=== PATIENT | female | born 1990 | race African-American/Black ===

== ENCOUNTER → 2018-02-15 | Outpatient (CLI) | payer OTHER | LOC: COL.RAD 02-12 14:00 | DX: N85.8 Other specified noninflammatory disorders of uterus (principal) ==

== ENCOUNTER 2018-11-08 07:36 | Emergency (ER) | payer BC, OTHER ==
[~2018-11-08] VITALS: Ht 167.6 cm; Wt 65.9 kg
[2018-11-08 07:41] VITALS: TEMP 97.7
[2018-11-08] MEDS ORDERED: ANUSOL-HC SUPPO25 MG RC (08:05)
[2018-11-08 08:18] VITALS: BP 120/58; PULSE 84
== END 2018-11-08 08:20 | disposition home or self-care (01) ==
LOC: COL.ER 07:36
DX: K64.4 Residual hemorrhoidal skin tags (principal)

== ENCOUNTER 2019-11-02 12:13 | Emergency (ER) | payer BC ==
[~2019-11-02] VITALS: Ht 167.6 cm; Wt 65.9 kg
[~2019-11-02 12:13] MED LIST: ANUSOL-HC SUPPO25 MG RC
[2019-11-02] MEDS ORDERED: ZITHROMAX Z PA250 MG PO (12:51)
[2019-11-02] MEDS ORDERED: MUCINEX 60600 MG/TA1 PO (12:51)
[2019-11-02] MEDS ORDERED: LEVAQUIN 750MG750 M1 PO (14:31)
[2019-11-02 15:20] VITALS: BP 118/72; PULSE 98; TEMP 97.1
== END 2019-11-02 15:20 | disposition home or self-care (01) ==
LOC: COL.ER 12:13
DX: J18.9 Pneumonia, unspecified organism (principal)